=== PATIENT | male | born 1955 | race Caucasian/White ===

== ENCOUNTER 2018-06-12 12:29 | Outpatient (CLI) | payer BC, OTHER ==
[~2018-06-12 12:29] MED LIST: Gadobenate Dimeglumine 529 MG/1 ML (20ML VIAL) ONE
--- NOTE | 2018-06-12 15:31 | MRI ---
PRE AND POST CONTRAST ENHANCED MRI IMAGES OF HE BRAIN AND IACs: History: Hearing loss in the left ear. FINDINGS: No abnormal areas of intracranial enhancement is seen. No evidence of abnormalities seen in the inter nal auditory canals. The vestibule, semicircular canal, cochlea, are all unremarkable. No evidence of areas of diffuse restriction seen to suggest acute strokes. No T2 signal abnormality seen. The ventricles are of normal size. Normal flow voids seen in the major intracranial vessels. The visualized portions of the sinuses are well aerated. Some cortical atrophy is seen. There does appear to be some fluid in the left mastoid air cells and possibly in the left middle ear. No definite evidence of significant masses seen along the posterior aspect of the nasal pharynx. 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 IMPRESSION: Some fluid seen in the left mastoid air cells and left middle ear. POS: [facility]
== END 2018-06-12 12:30 | disposition home or self-care (01) ==
LOC: SCSMRI 12:29
PROVIDERS: ATTEND Otolaryngology Plastic Surgery within the Head & Neck
DX: H90.42 Sensorineural hearing loss, unilateral, left ear, with unrestricted hearing on the contralateral side (principal); H93.12 Tinnitus, left ear
CPT/HCPCS: 70553; 82565; A9579

== ENCOUNTER 2019-03-13 15:19 | Outpatient (CLI) | payer BC ==
[2019-03-13 16:35] LABS: #Eosinphils 0.2 thou/uL (0.0-0.7); #Monocytes 0.8 thou/uL (0.11-0.59); #Neutrophils 3.8 thou/uL (1.40-6.50); %Basophils 0.3 % (0.0-1.0); %Eosinophils 3.7 % (0.0-10.0); %Lymphocytes 17.1 % (21.0-51.0); %Monocytes 13.1 % (0.0-10.0); %Neutrophils 65.8 % (42.0-75.0); Hemoglobin 16.1 g/dL (14.0-18.0); Mean Corpuscular HGB CONC 34.5 g/dL (32.0-36.0); Mean Corpuscular Volume 92.7 fL (78.0-98.0); Platelet Count 407 thou/uL (130-400); RBC Distribution Width 11.4 % (11.5-14.5); Red Blood Cell (RBC) Count 5.01 mill/uL (4.70-6.10); White Blood Cell (WBC) Count 5.8 thou/uL (4.8-10.8)
[2019-03-13 17:02] LABS: Anion Gap 17 mmol/L (10-20); BUN (Urea Nitrogen) 13 mg/dL (8.4-25.7); Calc. Creatinine Clearance 0 mL/min (70-130); Calcium 9.4 mg/dL (7.8-10.44); Carbon Dioxide 24 mmol/L (23-31); Chloride 103 mmol/L (98-107); Estimated GFR-MDRD 79; Glucose 93 mg/dL (80-115); Potassium 4.5 mmol/L (3.5-5.1); Sodium 139 mmol/L (136-145)
== END 2019-03-13 15:20 | disposition home or self-care (01) ==
LOC: LABBT 15:19
PROVIDERS: ATTEND Orthopaedic Surgery Hand Surgery
DX: Z01.818 Encounter for other preprocedural examination (principal); M72.0 Palmar fascial fibromatosis [Dupuytren]
CPT/HCPCS: 80048; 85025; 93005; 93010

== ENCOUNTER 2019-03-17 11:52 | Day surgery (SDC) | payer BC ==
[2019-03-13 15:48] VITALS: BMI 30.7
[2019-03-17] MEDS ORDERED: Betamet Acet/Betamet Na Ph 30 MG/5 ML VIAL ONE (12:16)
[2019-03-17] MEDS ORDERED: Bupivacaine PF 0.5% 30 ML VIAL ONE (12:16)
[2019-03-17] MEDS ORDERED: Bacitracin Zinc Ointment 30 gm TUBE ONE (12:16)
[2019-03-17] MEDS ORDERED: ceFAZolin Sodium (SDC) 2 GM/100 ML BAG ONE (12:32)
[2019-03-17] MEDS ORDERED: Fentanyl 100 MCG/2 ML VIAL ONE (15:32)
[2019-03-17] MEDS ORDERED: Lidocaine 1% PF 5 ML VIAL ONE (17:00)
[2019-03-17] MEDS ORDERED: PROPOFOL 200 MG/20 ML VIAL ONE (17:00)
[2019-03-17] MEDS ORDERED: ePHEDrine 50 MG/ML VIAL ONE (17:00)
[2019-03-17] MEDS ORDERED: Ketorolac Tromethamine 30 MG/ML VIAL ONE (17:58)
--- NOTE | 2019-03-18 12:23 | OP ---
DATE OF PROCEDURE: 03/17/2019 PREOPERATIVE DIAGNOSIS: Right small finger, ring finger, and middle finger Dupuytren's cord. FINDINGS: Radial and ulnar Dupuytren's cord to the small finger and ring finger and unilateral ulnar cord to the middle finger with the small finger cord inserted in all three phalanges. PROCEDURE PERFORMED: 1. Subtotal palmar fasciectomy with skin rearrangement/Z-plasty without skin grafting. 2. Neuroplasty, digital nerve to the following: Two times small finger, two times ring finger, and one time middle finger. SPECIMENS SENT: Dupuytren's cord x3 specimen. COMPLICATIONS: None. TOURNIQUET TIME: 50, 50, 53 minutes. ESTIMATED BLOOD LOSS: Less than or equal to 10 mL. INJECTABLE: 30 mL of Marcaine, 15 given between the two incisions prior to surgery and 15 given after wound closure. ANESTHESIA: General LMA technique augmented by the Marcaine listed above. DESCRIPTION OF PROCEDURE: After successful general LMA technique, the limb was prepped and draped. Time-out was done appropriately. We outlined a zigzag incision shelter between the ring finger and the long finger rays and then once on the ulnar aspect of the small finger beginning at the A1 rocio. Developing both of them on Vernell's lines, we dissected down to and found the neurovascular bundles. The small finger neurovascular bundle was pulled both the radial and ulnar to the midline and the small finger cord divided and a wire that went all the way to the distal to the A4 rocio ulnarly and had a radial branch going to the proximal phalangeal joint. We did a neuroplasty on the small finger, radial and ulnar nerve identified about the whole course and also sparing the artery associated with them and began once we did the neuroplasty successfully, to lift the mass out. We removed the cord on mass and from the interossei and the portion of the fascia proximal to the A1 rocio. We then began dissection proximally in the incision that was also Vernell type zigzag between the ring and middle finger and then extended it along the proximal phalanx of the ring finger radially until we identified the neurovascular bundle completely. Again, the ulnar neurovascular bundle and radial neurovascular pulled towards the midline and the branch to the long finger was identified, neuroplasty of the long finger digital nerve was accomplished and it was released from its fascial and skin attachments. There were fascial and skin attachments dimpling on the ring finger as well with the most distal nerve being ulnar and attaching on the fascia just distal to the A3 rocio. It was lifted up on mass, dissected back proximally, we the neurovascular bundles and removed it at the level of the transcarpal ligament. We released the tourniquet. We had excellent capillary refill, color, and we obtained hemostasis. We placed 2 mL of Celestone on the long finger cord and ring finger along with three along with small finger cord. The patient left the operating room without evidence of anesthetic operative complication. After the wound was closed with interrupted 4-0 nylon simple pattern, and he received remaining portion of the Marcaine. Job ID: [id number]
== END 2019-03-17 19:00 | disposition home or self-care (01) ==
LOC: SDC 11:52
PROVIDERS: ATTEND Orthopaedic Surgery Hand Surgery
PROC: 0JNJ0ZZ Release Right Hand Subcutaneous Tissue and Fascia, Open Approach (ICD-10-PCS; principal; 2019-03-17)
PROC: 01N60ZZ Release Radial Nerve, Open Approach (ICD-10-PCS; principal; 2019-03-17)
PROC: 0LN70ZZ Release Right Hand Tendon, Open Approach (ICD-10-PCS; principal; 2019-03-17)
PROC: 01N40ZZ Release Ulnar Nerve, Open Approach (ICD-10-PCS; principal; 2019-03-17)
DX: M72.0 Palmar fascial fibromatosis [Dupuytren] (principal); E78.5 Hyperlipidemia, unspecified; F41.0 Panic disorder [episodic paroxysmal anxiety]; Z87.891 Personal history of nicotine dependence; Z79.899 Other long term (current) drug therapy; Z98.890 Other specified postprocedural states
CPT/HCPCS: 88304; J0690; J0702; J1885; J3010; S0020

== ENCOUNTER 2022-06-27 17:30 | Outpatient (CLI) | payer BC | END 2022-06-27 17:31 | disposition home or self-care (01) | LOC: SLEEPLAB 17:30 | PROVIDERS: ATTEND Family Medicine | DX: G47.33 Obstructive sleep apnea (adult) (pediatric) (principal); F41.9 Anxiety disorder, unspecified; R06.83 Snoring; I10 Essential (primary) hypertension; G47.00 Insomnia, unspecified; R09.02 Hypoxemia; E66.9 Obesity, unspecified; Z68.35 Body mass index [BMI] 35.0-35.9, adult | CPT/HCPCS: 95800 ==